=== PATIENT | male | born 1995 | race Two or more races ===

== ENCOUNTER 2024-10-12 10:04 | Emergency (ER) | payer MEDICARE, MEDICAID, SELFPAY ==
[2024-10-12 10:38] VITALS: BP 137/82; PULSE 106; RESP 20; TEMP 36.7; O2SAT 97; BMI 51.7
--- NOTE | 2024-10-12 10:40 | XR_ITS ---
Examination: Abdomen sonogram, Limited Date and time of exam: October 12, 2024 1130 hours INDICATIONS: Right upper abdominal pain with diarrhea beginning 3 weeks ago Technique: Real-time byrd scale transabdominal sonographic images of the upper abdomen obtained. Findings: Normal gallbladder Normal common bile duct 0.3 cm Pancreatic head 2.2 cm Liver 21.6 cm fatty infiltration smooth contour no focal liver lesions Normal hepatopedal portal venous oh Patent IVC IMPRESSION: Normal gallbladder Significant hepatomegaly fatty liver
[2024-10-12 11:10] LABS: Basophils % (Auto) 0 % (0-2.5); Eosinophils # (Auto) 0.1 Thou/mm3 (0.0-0.5); Eosinophils % (Auto) 1 % (0-10); Hemoglobin 14.9 g/dL (13.5-16.0); Immature Granulocytes % (Auto) 0 % (0-0); Immature Granulocytes Auto 0.02 Thou/mm3 (0.00-0.00); Lymphocytes # (Auto) 1.3 Thou/mm3 (1.0-4.8); Lymphocytes % (Auto) 17 % (10-50); Mean Corpuscular HGB Conc 34.7 g/dl (31.0-37.0); Mean Corpuscular Hemoglobin 30.3 pg (25.0-35.0); Mean Corpuscular Volume 87 fL (80-100); Monocytes # (Auto) 0.5 Thou/mm3 (0.0-0.8); Monocytes % (Auto) 7 % (0-12); Neutrophils # (Auto) 5.7 Thou/mm3 (1.8-7.7); Neutrophils % (Auto) 75 % (37-80); Nucleated Red Blood Cell % 0 /100 WBC (0); Platelet Count 200 Thou/mm3 (140-440); RDW Standard Deviation 40.9 fL (35.1-43.9); Red Blood Count 4.92 Miln/mm3 (4.50-5.90); White Blood Count 7.6 Thou/mm3 (3.8-10.6)
[2024-10-12 11:30] LABS: Alanine Aminotransferase 94 U/L (10-49); Albumin, Serum 4.9 gm/dL (3.5-5.0); Albumin/Globulin Ratio 1.7 (1.2-2.2); Alkaline Phosphatase 68 U/L (46-116); Anion Gap 9 (7-16); Aspartate Amino Transferase 52 U/L (0-34); BUN/Creatinine Ratio 13 Ratio (12-20); Bilirubin,Total 0.5 mg/dL (0.3-1.2); Blood Urea Nitrogen 12 mg/dL (9-23); Calcium 9.9 mg/dL (8.3-10.6); Calcium (Corrected) 9.9 mg/dL (8.5-10.1); Carbon Dioxide 26.2 mMol/L (20.0-31.0); Chloride 99 mMol/L (98-107); Creatinine (Component) 0.9 mg/dL (0.6-1.3); Estimated Creatinine Clearance 181.4 mL/min (>60); Globulin 2.9 gm/dL (2.3-3.5); Glucose 145 mg/dL (74-106); Lipase 35 U/L (12-53); Osmolality,Calculated 270 (275-295); Potassium 4.1 mMol/L (3.4-5.1); Sodium 134 mMol/L (136-145); Total Protein 7.8 gm/dL (5.7-8.2); eGFR > 60 See Note
[2024-10-12 12:05] LABS: Collection Type, Urine Clean Catch; Squamous Epithelial Cell,Urine 0 /hpf (0-5)
[2024-10-12 12:17] LABS: Amphetamine/Methamp Scrn,U Negative (Negative); Barbiturate Screen,Urine Negative (Negative); Benzodiazepines Screen,Urine Negative (Negative); Benzoylecgonine Screen, Ur Negative (Negative); Fentanyl Screen,Urine Negative (Negative); Opiate Screen,Urine Negative (Negative); THC Screen,Urine Negative (Negative)
[2024-10-12 12:20] LABS: Bacteria,Urine Rare; Bilirubin,Urine Negative (Negative); Blood,Urine Negative (Negative); Clarity,Urine Clear (Clear/Hazy); Color,Urine Yellow (Lt Yel-Yel); Culture Indicated,Urine Not Indicated; Glucose, Urine Negative (Negative); Hyaline Casts,Urine < 1 /hpf (0-1); Ketones,Urine Negative (Negative); Leukocyte Esterase,Urine Negative (Negative); Nitrite,Urine Negative (Negative); PH,Urine 6.5 (5.0-7.0); Protein,Urine Trace (Neg - Trace); RBC,Urine 1 /hpf (0-3); Specific Gravity,Urine 1.023 (1.001-1.035); Transitional Epi Cells,Urine < 1 /hpf (0-5); Urobilinogen,Urine Negative mg/dL (0.0-1.0); WBC,Urine 2 /hpf (0-5)
--- NOTE | 2024-10-12 12:27 | PD.EDABDPN ---
ED Abdominal Pain RME/HPI General Chief Complaint: Abdominal Pain Stated complaint: RIGHT ABD PAIN X 2 1/2 WKS; DIARRHEA Time seen by provider: 10/12/24 10:13 Arrival date/time: 10/12/24 10:04 28-year-old male presents emergency department complains of right upper abdominal pain as well as diarrhea patient for symptoms ongoing for last couple of days patient reports similar symptoms in the past Limitations: no limitations Related Data Home Medications ?Medication ?Instructions ?Recorded ?Confirmed lithium carbonate 450 mg 450 mg PO BID 12/14/22 12/14/22 tablet,extended release olanzapine 15 mg tablet 30 mg PO QPM 12/14/22 12/14/22 risperidone 4 mg tablet 8 mg PO QDAY 12/14/22 12/14/22 simvastatin 20 mg tablet 20 mg PO QDAY 12/14/22 12/14/22 Previous Rx's ?Medication ?Instructions ?Recorded ibuprofen 600 mg tablet 600 mg PO TID PRN pain #30 tabs 12/15/22 dicyclomine 20 mg tablet 20 mg PO TID PRN pain #30 tabs 12/20/22 ciprofloxacin HCl 500 mg tablet 500 mg PO BID #14 tabs 01/02/23 (Cipro) ibuprofen 800 mg tablet 800 mg PO TID PRN pain #30 tabs 01/13/23 naproxen 500 mg tablet 500 mg PO BID #30 tabs 02/11/23 ibuprofen 800 mg tablet 800 mg PO TID PRN pain #30 tabs 06/13/23 meloxicam 7.5 mg tablet 7.5 mg PO QDAY #10 tabs 06/28/23 dicyclomine 20 mg tablet 20 mg PO TID PRN pain #30 tabs 09/20/23 ibuprofen 600 mg tablet 600 mg PO TID PRN pain #30 tabs 10/25/23 metoclopramide HCl 10 mg tablet 10 mg PO Q6H PRN nausea and 02/28/24 (Reglan) vomiting #30 tabs amlodipine 5 mg tablet 5 mg PO QDAY #30 tabs 03/11/24 Allergies Allergy/AdvReac Type Severity Reaction Status Date / Time No Known Allergies Allergy Verified 10/12/24 10:05 Review of Systems Review of Systems Systems Reviewed: All systems reviewed, normal except as documented Constitutional Constitutional: Reports system reviewed and no additional complaints, except as documented, Denies fatigue, Denies fever(s) and Denies headache(s) Eyes Eyes: Reports system reviewed and no additional complaints, except as documented and Denies blurry vision ENT Ears, Nose, Mouth, and Throat: Reports system reviewed and no additional complaints, except as documented, Denies headache(s), Denies nasal congestion and Denies nasal discharge Cardiovascular Cardiovascular: Reports system reviewed and no additional complaints, except as documented, Denies chest pain and Denies dyspnea Respiratory Respiratory: Reports system reviewed and no additional complaints, except as documented, Denies chest congestion, Denies cough and Denies dyspnea Gastrointestinal Gastrointestinal: Reports system reviewed and no additional complaints, except as documented, Reports abdominal pain, Denies nausea and Denies vomiting Musculoskeletal Musculoskeletal: Reports system reviewed and no additional complaints, except as documented, Denies abnormal gait, Denies numbness, Denies stiffness and Denies tingling Integumentary/Breasts Skin/Breast: Reports system reviewed and no additional complaints, except as documented and Denies rash Neurologic Neurologic: Reports system reviewed and no additional complaints, except as documented, Reports as per HPI, Denies abnormal gait, Denies headache(s), Denies numbness and Denies tingling Psychiatric Psychiatric: Reports system reviewed and no additional complaints, except as documented and Denies anxiety Endocrine Endocrine: Denies fatigue Past Medical History Past Medical History NEUROLOGIC: Negative Neurological Disorders ED Exam General Limitations: Present no limitations General appearance: Present alert and in no apparent distress Head Head exam: Present atraumatic Eye Eye exam: Present normal appearance, PERRL and EOMI ENT ENT exam: Present normal exam, normal oropharynx and mucous membranes moist Neck Neck exam: Present normal inspection, full ROM and trachea midline Chest Chest inspection: Present normal inspection and symmetric chest wall rise Respiratory Respiratory exam: Present normal lung sounds bilaterally Cardiovascular Cardiovascular exam: Present regular rate, normal rhythm and normal heart sounds Abdominal Exam Abdominal exam: Present soft and normal bowel sounds; Absent distention, tenderness, guarding, rebound, rigidity, Johnson's sign or tenderness at McBurney's Point Abdominal tenderness: Absent RUQ or RLQ Extremities Exam Extremities exam: Present normal inspection and full ROM Back Exam Back exam: Present normal inspection and full ROM Neurological Exam Neurological exam: Present alert, oriented X3 and CN II-XII intact Psychiatric Psychiatric exam: Present normal affect and normal mood Skin Skin exam: Present warm, dry, intact and normal color Course Quality Measures none Orders Category Date Time Status US gall bladder Stat Exams 10/12/24 10:40 Completed CBC Stat Lab 10/12/24 10:47 Completed Comprehensive Metabolic Panel Stat Lab 10/12/24 10:47 Completed Drug Screen,Urine Stat Lab 10/12/24 11:56 Completed Lipase Stat Lab 10/12/24 10:47 Completed UA, C/S IF [Urinalysis, C/S if Indicated] Stat Lab 10/12/24 11:49 Completed Vital Signs Vital signs: Vital Signs Temperature 98.1 F 10/12/24 10:38 Pulse Rate 106 H 10/12/24 10:38 Respiratory Rate 20 10/12/24 10:38 Blood Pressure 137/82 H 10/12/24 10:38 Pulse Oximetry (%) 97 10/12/24 10:38 Oxygen Delivery Method Room Air 10/12/24 10:38 O2 saturation 97% room air within normal limits Abdominal Pain MDM MDM Narrative MDM Narrative:: 28-year-old male presents emergency department complains of right upper abdominal pain as well as diarrhea patient for symptoms ongoing for last couple of days patient reports similar symptoms in the past On exam patient well-appearing patient does not appear ill or toxic in no acute distress Lab works well as abdominal ultrasound obtained No acute emergent findings noted Patient discharged home in no distress to follow-up with primary care doctor in the next 24 to 48 hours and for any worsening symptoms to return to the ER immediately Patient data External records reviewed:: [facility] previous records Clinical information provided by:: patient Social determinants that could affect healthcare access:: mental health Patient has the following chronic illnesses:: See history How is presenting disease/condition affected by chronic disease/condition?: uneffected by Evaluation data The following diagnostics were reviewed and interpreted by me:: lab results and radiology exam(s) Lab and/or radiology exams considered but not ordered:: Labs and radiology obtained Interpretation Summary: Reviewed by me Medications / Prescriptions Medications or Prescriptions considered but not ordered:: Consider not ordered Medication administrations:: Given Consultations Consultation(s) initiated? (list below): No Diagnosis Differential diagnosis abdominal pain: abdominal pain, acute appendicitis, gastroenteritis and pancreatitis Most likely diagnosis given after review of the tests above:: Abdominal pain Admission Indicated Admission indicated?: not indicated Admission Request Was there a request for admission?: No Disposition Plan Disposition Plan: Discharge Discharge Attestation Discharge Attestation: The patient and all family members were given an opportunity to ask questions and understood the discharge instructions. Discharge instructions specifically effects, indications for sooner follow up or return to the emergency department, and the expected course of current diagnosis. Patient condition: Stable Discharge Plan Plan Patient Disposition: HOME (Self Care) Disposition Comment: Stable Prescriptions/Referrals Prescriptions/Med Rec: No Action risperidone 4 mg Tablet 8 mg PO QDAY lithium carbonate 450 mg Tablet Extended Release 450 mg PO BID simvastatin 20 mg Tablet 20 mg PO QDAY olanzapine 15 mg Tablet 30 mg PO QPM ibuprofen 600 mg tablet 600 mg PO TID PRN (Reason: pain) Qty: 30 0RF dicyclomine 20 mg tablet 20 mg PO TID PRN (Reason: pain) Qty: 30 0RF meloxicam 7.5 mg tablet 7.5 mg PO QDAY Qty: 10 0RF ibuprofen 600 mg tablet 600 mg PO TID PRN (Reason: pain) Qty: 30 0RF metoclopramide HCl [Reglan] 10 mg tablet 10 mg PO Q6H PRN (Reason: nausea and vomiting) Qty: 30 0RF ciprofloxacin HCl [Cipro] 500 mg tablet 500 mg PO BID Qty: 14 0RF ibuprofen 800 mg tablet 800 mg PO TID PRN (Reason: pain) Qty: 30 0RF naproxen 500 mg tablet 500 mg PO BID Qty: 30 0RF ibuprofen 800 mg tablet 800 mg PO TID PRN (Reason: pain) Qty: 30 0RF dicyclomine 20 mg tablet 20 mg PO TID PRN (Reason: pain) Qty: 30 0RF amlodipine 5 mg tablet 5 mg PO QDAY Qty: 30 0RF Referrals: Jayna Bansal FNP [Primary Care Provider] - In 1 week Problem List Clinical Impression: Abdominal pain Patient/Caregiver Discharge Instructions Education Materials: Abdominal Pain Additional Instructions: Please follow up with your primary care doctor in the next 24-48hrs for any worsening symptoms return here immediately Print Language: Zambian Stand Alone Forms: Sonia Award Info., Patient Portal Info Letter EDD/AIXA Supervising Physician EDD/AIXA Supervising Physician: Dr sharif
== END 2024-10-12 13:20 | disposition home or self-care (01) ==
PROVIDERS: Nurse Practitioner Primary Care; Emergency Provider Emergency Medicine; PCP Nurse Practitioner Family
DX: R10.11 Right upper quadrant pain (principal)
CPT/HCPCS: 36415; 76705; 80053; 80307; 81001; 83690; 85025; 99284

== ENCOUNTER 2024-10-23 10:19 | Emergency (ER) | payer MEDICARE, MEDICAID, SELFPAY ==
[2024-10-23 10:20] VITALS: BMI 48.7
[2024-10-23 10:34] VITALS: BP 144/107; PULSE 124; RESP 20; TEMP 36.9; O2SAT 98
--- NOTE | 2024-10-23 10:38 | EDNOTE_ITS ---
ED Psych RME/HPI General Chief Complaint: Psychiatric Symptoms Stated Complaint: BAD PEOPLE TOOK SPINE FLUID FROM BRAIN Time Seen by Provider: 10/23/24 10:37 Arrival date/time: 10/23/24 10:19 28-year-old male with diagnosis of schizophrenia history of methamphetamine abuse presents emergency department today complaining of hearing voices. Limitations: no limitations Related Data Home Medications ?Medication ?Instructions ?Recorded ?Confirmed lithium carbonate 450 mg 450 mg PO BID 12/14/22 12/14/22 tablet,extended release olanzapine 15 mg tablet 30 mg PO QPM 12/14/22 12/14/22 risperidone 4 mg tablet 8 mg PO QDAY 12/14/22 12/14/22 simvastatin 20 mg tablet 20 mg PO QDAY 12/14/22 12/14/22 Previous Rx's ?Medication ?Instructions ?Recorded ibuprofen 600 mg tablet 600 mg PO TID PRN pain #30 tabs 12/15/22 dicyclomine 20 mg tablet 20 mg PO TID PRN pain #30 tabs 12/20/22 ciprofloxacin HCl 500 mg tablet 500 mg PO BID #14 tabs 01/02/23 (Cipro) ibuprofen 800 mg tablet 800 mg PO TID PRN pain #30 tabs 01/13/23 naproxen 500 mg tablet 500 mg PO BID #30 tabs 02/11/23 ibuprofen 800 mg tablet 800 mg PO TID PRN pain #30 tabs 06/13/23 meloxicam 7.5 mg tablet 7.5 mg PO QDAY #10 tabs 06/28/23 dicyclomine 20 mg tablet 20 mg PO TID PRN pain #30 tabs 09/20/23 ibuprofen 600 mg tablet 600 mg PO TID PRN pain #30 tabs 10/25/23 metoclopramide HCl 10 mg tablet 10 mg PO Q6H PRN nausea and 02/28/24 (Reglan) vomiting #30 tabs amlodipine 5 mg tablet 5 mg PO QDAY #30 tabs 03/11/24 Allergies Allergy/AdvReac Type Severity Reaction Status Date / Time No Known Allergies Allergy Verified 10/23/24 10:24 Review of Systems Review of Systems Systems Reviewed: All systems reviewed, normal except as documented Constitutional Constitutional: Reports system reviewed and no additional complaints, except as documented, Denies fever(s) and Denies headache(s) Eyes Eyes: Reports system reviewed and no additional complaints, except as documented and Denies blurry vision ENT Ears, Nose, Mouth, and Throat: Reports system reviewed and no additional complaints, except as documented, Denies headache(s), Denies nasal congestion and Denies nasal discharge Cardiovascular Cardiovascular: Reports system reviewed and no additional complaints, except as documented, Denies chest pain and Denies dyspnea Respiratory Respiratory: Reports system reviewed and no additional complaints, except as documented, Denies chest congestion, Denies cough and Denies dyspnea Gastrointestinal Gastrointestinal: Reports system reviewed and no additional complaints, except as documented and Denies abdominal pain Integumentary/Breasts Skin/Breast: Reports system reviewed and no additional complaints, except as documented and Denies rash Neurologic Neurologic: Reports system reviewed and no additional complaints, except as documented, Reports as per HPI and Denies headache(s) Psychiatric Psychiatric: Reports system reviewed and no additional complaints, except as documented, Reports anxiety, Reports auditory hallucinations, Denies homicidal ideation, Reports panic attacks, Denies suicidal ideation, Reports tactile hallucinations and Denies visual hallucinations Past Medical History Past Medical History NEUROLOGIC: Negative Neurological Disorders CARDIAC: Positive Hypertension; Negative Cardiac Disorders or Congestive Heart Failure RESPIRATORY: Negative Chronic Obstructive Pulmonary Disease (COPD) or Asthma GASTROINTESTINAL: Negative Gastrointestinal Disorders GENITOURINARY: Negative Genitourinary Disorders or Renal Disease MUSCULOSKELETAL: Positive Musculoskeletal Disorders ENDOCRINE: Negative Endocrine Disorders, Diabetes Mellitus Type 1 or Diabetes Mellitus Type 2 (Pre-diabetic) HEMATOLOGIC: Negative Blood Disorders or Sickle Cell Disease PSYCHO/SOCIAL: Positive Schizophrenia and Recreational Drug Use Social History SMOKING STATUS: Never smoker SECOND HAND EXPOSURE: No SUBSTANCE USE: methamphetamine OCCUPATION: Not working ED Exam General Limitations: Present no limitations General appearance: Present alert and in no apparent distress Head Head exam: Present atraumatic, normocephalic and normal inspection Eye Eye exam: Present normal appearance, PERRL and EOMI; Absent conjunctival injection ENT ENT exam: Present normal exam, normal oropharynx and mucous membranes moist Neck Neck exam: Present normal inspection, full ROM and trachea midline Chest Chest inspection: Present normal inspection and symmetric chest wall rise Respiratory Respiratory exam: Present normal lung sounds bilaterally; Absent respiratory distress Cardiovascular Cardiovascular exam: Present regular rate, normal rhythm and normal heart sounds Abdominal Exam Abdominal exam: Present soft and normal bowel sounds; Absent distention, tenderness, guarding, rebound or rigidity Extremities Exam Extremities exam: Present normal inspection and full ROM Back Exam Back exam: Present normal inspection and full ROM Neurological Exam Neurological exam: Present alert, oriented X3, CN II-XII intact, normal gait and reflexes normal; Absent motor sensory deficit Psychiatric Psychiatric exam: Present anxious; Absent depressed, agitated, flat affect, homicidal ideation or suicidal ideation Skin Skin exam: Present warm, dry, intact and normal color; Absent rash Course Quality Measures none Vital Signs Vital signs: Vital Signs Temperature 98.4 F 10/23/24 10:34 Pulse Rate 124 H 10/23/24 10:34 Respiratory Rate 20 10/23/24 10:34 Blood Pressure 144/107 H 10/23/24 10:34 Pulse Oximetry (%) 98 10/23/24 10:34 Oxygen Delivery Method Room Air 10/23/24 10:34 O2 saturation 98% room air WNL Psych MDM Narrative MDM Narrative:: 28-year-old male with diagnosis of schizophrenia history of methamphetamine abuse presents emergency department today complaining of hearing voices. On exam patient does not appear ill or toxic in no acute distress patient hemodynamically stable Patient is very well-known to me I am known for many years I had a conversation with the patient and patient assures me he is not suicidal or homicidal he does not want to speak with psych or crisis and does not want a lab work We talked for a while and he states he feels well to go home Patient discharged home in no distress to follow-up with primary care doctor in the next 24 to 48 hours and for any worsening symptoms to return to the ER immediately Patient data External records reviewed:: [facility] previous records Clinical information provided by:: patient Social determinants that could affect healthcare access:: mental health Patient has the following chronic illnesses:: Mental health How is presenting disease/condition affected by chronic disease/condition?: caused by Evaluation data The following diagnostics were reviewed and interpreted by me:: other (specify) (N/A) Lab and/or radiology exams considered but not ordered:: Consider not ordered Interpretation Summary: N/A Medications / Prescriptions Medications or Prescriptions considered but not ordered:: No meds Medication administrations:: No meds Consultations Consultation(s) initiated? (list below): No Diagnosis Psych Differential Diagnosis: acute psychosis, chronic schizophrenia and drug- induced psychotic disorder Most likely diagnosis given after review of the tests above:: Schizophrenia Admission Indicated Admission indicated?: not indicated Admission Request Was there a request for admission?: No Disposition Plan Disposition Plan: Discharge Discharge Attestation Discharge Attestation: The patient and all family members were given an opportunity to ask questions and understood the discharge instructions. Discharge instructions specifically effects, indications for sooner follow up or return to the emergency department, and the expected course of current diagnosis. Patient condition: Stable Discharge Plan Plan Patient Disposition: HOME (Self Care) Disposition Comment: stable Prescriptions/Referrals Prescriptions/Med Rec: No Action risperidone 4 mg Tablet 8 mg PO QDAY lithium carbonate 450 mg Tablet Extended Release 450 mg PO BID simvastatin 20 mg Tablet 20 mg PO QDAY olanzapine 15 mg Tablet 30 mg PO QPM ibuprofen 600 mg tablet 600 mg PO TID PRN (Reason: pain) Qty: 30 0RF dicyclomine 20 mg tablet 20 mg PO TID PRN (Reason: pain) Qty: 30 0RF meloxicam 7.5 mg tablet 7.5 mg PO QDAY Qty: 10 0RF ibuprofen 600 mg tablet 600 mg PO TID PRN (Reason: pain) Qty: 30 0RF metoclopramide HCl [Reglan] 10 mg tablet 10 mg PO Q6H PRN (Reason: nausea and vomiting) Qty: 30 0RF ciprofloxacin HCl [Cipro] 500 mg tablet 500 mg PO BID Qty: 14 0RF ibuprofen 800 mg tablet 800 mg PO TID PRN (Reason: pain) Qty: 30 0RF naproxen 500 mg tablet 500 mg PO BID Qty: 30 0RF ibuprofen 800 mg tablet 800 mg PO TID PRN (Reason: pain) Qty: 30 0RF dicyclomine 20 mg tablet 20 mg PO TID PRN (Reason: pain) Qty: 30 0RF amlodipine 5 mg tablet 5 mg PO QDAY Qty: 30 0RF Problem List Clinical Impression: Chronic schizophrenia Patient/Caregiver Discharge Instructions Education Materials: ED Psychosis Additional Instructions: Please follow up with your primary care doctor in the next 24-48hrs for any worsening symptoms return here immediately Print Language: Macanese Stand Alone Forms: Sonia Award Info., Patient Portal Info Letter PA/CLINICAL TRIAL ASSISTANT Supervising Physician PA/CLINICAL TRIAL ASSISTANT Supervising Physician: dr damon
== END 2024-10-23 11:04 | disposition home or self-care (01) ==
LOC: SERX 10:46
PROVIDERS: Emergency Provider Emergency Medicine
DX: F20.9 Schizophrenia, unspecified (principal)
CPT/HCPCS: 99281

== ENCOUNTER → 2024-12-10 | Outpatient (CLI) | payer MEDICARE, MEDICAID, SELFPAY ==
--- NOTE | 2024-12-10 15:30 | XR_ITS ---
Examination: Ultrasound soft tissue scalp TECHNIQUE: High resolution grayscale sonographic images soft tissue posterior scalp INDICATIONS: Lump in the posterior back of the head several months with swelling FINDINGS: No cystic or solid mass IMPRESSION: No cystic or solid mass
== END | disposition home or self-care (01) ==
LOC: CDIM 15:21
PROVIDERS: Referring Provider Nurse Practitioner Family; Visit Provider Nurse Practitioner Family
DX: R22.0 Localized swelling, mass and lump, head (principal)
CPT/HCPCS: 76536

== ENCOUNTER 2024-12-27 09:30 | Emergency (ER) | payer MEDICARE, MEDICAID, SELFPAY ==
[2024-12-27 09:31] VITALS: BMI 49.5
[2024-12-27 10:37] VITALS: BP 152/97; PULSE 116; RESP 18; TEMP 36.7; O2SAT 96
--- NOTE | 2024-12-27 11:16 | PD.EDRME ---
Rapid Medical Screening Exam RME Arrival date/time: 12/27/24 09:30 29-year-old male history of ADAME here with complaints of right upper quadrant abdominal pain. I have greeted and performed a focused initial assessment of this patient. Initial appropriate labs ordered at this time. A comprehensive ED assessment and evaluation of the patient and analysis of all test and completion of medical decision making process will be conducted by additional ED provider. Chief Complaint: Abdominal Pain Time Seen by Provider: 12/27/24 09:57 Vital signs: Vital Signs Temperature 98.1 F 12/27/24 10:37 Pulse Rate 116 H 12/27/24 10:37 Respiratory Rate 18 12/27/24 10:37 Blood Pressure 152/97 H 12/27/24 10:37 Pulse Oximetry (%) 96 12/27/24 10:37 Oxygen Delivery Method Room Air 12/27/24 10:37
[2024-12-27 11:35] LABS: Collection Type, Urine Clean Catch; Squamous Epithelial Cell,Urine 0 /hpf (0-5)
[2024-12-27 11:42] LABS: Basophils % (Auto) 0 % (0-2.5); Eosinophils % (Auto) 0 % (0-10); Hematocrit 40.8 % (41.0-53.0); Hemoglobin 14.2 g/dL (13.5-16.0); Immature Granulocytes % (Auto) 0 % (0-0); Immature Granulocytes Auto 0.03 Thou/mm3 (0.00-0.00); Lymphocytes # (Auto) 1.5 Thou/mm3 (1.0-4.8); Lymphocytes % (Auto) 15 % (10-50); Mean Corpuscular HGB Conc 34.8 g/dl (31.0-37.0); Mean Corpuscular Hemoglobin 30.1 pg (25.0-35.0); Mean Corpuscular Volume 86 fL (80-100); Monocytes # (Auto) 0.6 Thou/mm3 (0.0-0.8); Monocytes % (Auto) 7 % (0-12); Neutrophils # (Auto) 7.3 Thou/mm3 (1.8-7.7); Neutrophils % (Auto) 77 % (37-80); Nucleated Red Blood Cell % 0 /100 WBC (0); Platelet Count 211 Thou/mm3 (140-440); RDW Standard Deviation 40.2 fL (35.1-43.9); Red Blood Count 4.72 Miln/mm3 (4.50-5.90); White Blood Count 9.5 Thou/mm3 (3.8-10.6)
[2024-12-27 11:56] LABS: Alanine Aminotransferase 72 U/L (10-49); Albumin, Serum 4.7 gm/dL (3.5-5.0); Albumin/Globulin Ratio 1.6 (1.2-2.2); Alkaline Phosphatase 73 U/L (46-116); Anion Gap 11 (7-16); Aspartate Amino Transferase 47 U/L (0-34); BUN/Creatinine Ratio 15 Ratio (12-20); Bilirubin,Total 0.5 mg/dL (0.3-1.2); Blood Urea Nitrogen 12 mg/dL (9-23); Calcium 9.9 mg/dL (8.3-10.6); Calcium (Corrected) 9.9 mg/dL (8.5-10.1); Carbon Dioxide 25.3 mMol/L (20.0-31.0); Chloride 100 mMol/L (98-107); Creatinine (Component) 0.8 mg/dL (0.6-1.3); Estimated Creatinine Clearance 203.2 mL/min (>60); Glucose 134 mg/dL (74-106); Lipase 31 U/L (12-53); Osmolality,Calculated 273 (275-295); Potassium 4.3 mMol/L (3.4-5.1); Sodium 136 mMol/L (136-145); Total Protein 7.7 gm/dL (5.7-8.2); eGFR > 60 See Note
[2024-12-27 11:59] LABS: Bilirubin,Urine Negative (Negative); Blood,Urine Negative (Negative); Clarity,Urine Turbid (Clear/Hazy); Color,Urine Yellow (Lt Yel-Yel); Glucose, Urine Negative (Negative); Granular Casts,Urine 2 /hpf (0-1); Ketones,Urine Trace (Negative); Leukocyte Esterase,Urine Negative (Negative); Nitrite,Urine Negative (Negative); Protein,Urine 1+ (Neg - Trace); RBC,Urine 1 /hpf (0-3); Specific Gravity,Urine 1.032 (1.001-1.035); Urobilinogen,Urine Negative mg/dL (0.0-1.0); WBC,Urine 1 /hpf (0-5)
[2024-12-27 12:10] LABS: Sperm,Urine Present
[2024-12-27 12:57] VITALS: BP 135/97; PULSE 92; RESP 20; TEMP 36.7; O2SAT 97
--- NOTE | 2024-12-27 14:01 | XR_ITS ---
Examination: Abdomen sonogram, Limited Date and time of exam: December 13 1224 hours INDICATIONS: Right upper abdominal pain beginning 5 months ago worse today Technique: Real-time byrd scale transabdominal sonographic images of the upper abdomen obtained. Findings: Negative for gallstones Gallbladder wall 0.3 cm no edema Common bile duct 0.4 cm Pancreatic head 2.3 cm Liver 26.5 cm fatty infiltration no focal liver lesions Normal hepatopedal portal venous flow Patent IVC IMPRESSION: Normal gallbladder Significant hepatomegaly fatty liver
--- NOTE | 2024-12-27 14:02 | PD.EDABDPN ---
ED Abdominal Pain RME/HPI General Chief Complaint: Abdominal Pain Stated complaint: RUQ PAIN Time seen by provider: 12/27/24 09:57 Arrival date/time: 12/27/24 09:30 RME / HPI RME / HPI narrative: 29-year-old male patient with significant history of ADAME came in for evaluation regarding right upper quadrant pain. Patient having having right upper quadrant pain for more than a month, but today patient pain is get worse. Describes sharp pain severity moderate. Denies any fever vomiting diarrhea or constipation denies any other complaints. Related Data Home Medications ?Medication ?Instructions ?Recorded ?Confirmed lithium carbonate 450 mg 450 mg PO BID 12/14/22 12/14/22 tablet,extended release olanzapine 15 mg tablet 30 mg PO QPM 12/14/22 12/14/22 risperidone 4 mg tablet 8 mg PO QDAY 12/14/22 12/14/22 simvastatin 20 mg tablet 20 mg PO QDAY 12/14/22 12/14/22 Previous Rx's ?Medication ?Instructions ?Recorded ibuprofen 600 mg tablet 600 mg PO TID PRN pain #30 tabs 12/15/22 dicyclomine 20 mg tablet 20 mg PO TID PRN pain #30 tabs 12/20/22 ciprofloxacin HCl 500 mg tablet 500 mg PO BID #14 tabs 01/02/23 (Cipro) ibuprofen 800 mg tablet 800 mg PO TID PRN pain #30 tabs 01/13/23 naproxen 500 mg tablet 500 mg PO BID #30 tabs 02/11/23 ibuprofen 800 mg tablet 800 mg PO TID PRN pain #30 tabs 06/13/23 meloxicam 7.5 mg tablet 7.5 mg PO QDAY #10 tabs 06/28/23 dicyclomine 20 mg tablet 20 mg PO TID PRN pain #30 tabs 09/20/23 ibuprofen 600 mg tablet 600 mg PO TID PRN pain #30 tabs 10/25/23 metoclopramide HCl 10 mg tablet 10 mg PO Q6H PRN nausea and 02/28/24 (Reglan) vomiting #30 tabs amlodipine 5 mg tablet 5 mg PO QDAY #30 tabs 03/11/24 Allergies Allergy/AdvReac Type Severity Reaction Status Date / Time No Known Allergies Allergy Verified 12/27/24 10:58 Review of Systems Review of Systems Narrative Review of Systems: Review of system reviewed and within normal limits except mentioned in HPI ED Exam Narrative Physical exam: VITAL SIGNS: Reviewed. GENERAL APPEARANCE: Alert and interactive, follows commands, no acute distress, HEAD AND FACE: Non-traumatic. ENT: PERRL, pink conjunctivitis, eyelid no trauma, Mucous membrane moist. NECK: Supple, nontender, no nuchal rigidity. CHEST: No tenderness, no crepitus, no paradoxical movement, no retractions. LUNGS: Clear, well ventilated, symmetric, no rales, no wheezing, no ronchi, no stridor, good breath sounds bilaterally. HEART: Regular rate, regular rhythm, no murmur, no gallops. ABDOMEN: Soft, positive bowel sounds, nondistended, no guarding, right upper quadrant tenderness, no rebound, no masses, RECTAL: Deferred. GENITAL: Deferred. NEUROLOGICAL: Gross motor function intact sensory function intact, Appropriate for age. MUSCULOSKELETAL: low back nontender, full range of motion. EXTREMITIES: Nontender, full range of motion. SKIN: Color pink, dry, no rash, no lacerations, no abrasions, no contusions. LYMPHATICS: Deferred. Course Quality Measures none Orders Category Date Time Status US gall bladder Stat Exams 12/27/24 14:01 Completed CBC Stat Lab 12/27/24 11:23 Completed Comprehensive Metabolic Panel Stat Lab 12/27/24 11:23 Completed Lipase Stat Lab 12/27/24 11:23 Completed Urinalysis Stat Lab 12/27/24 11:31 Completed Ketorolac Inj [Toradol Inj] Med 12/27/24 14:01 Discontinued 30 mg IM X1 ONE Vital Signs Vital signs: Vital Signs Temperature 98.1 F 12/27/24 10:37 Pulse Rate 116 H 12/27/24 10:37 Respiratory Rate 18 12/27/24 10:37 Blood Pressure 152/97 H 12/27/24 10:37 Pulse Oximetry (%) 96 12/27/24 10:37 Oxygen Delivery Method Room Air 12/27/24 10:37 Abdominal Pain MDM MDM Narrative MDM Narrative:: 29-year-old male patient with significant history of ADAME came in for evaluation regarding right upper quadrant pain. Patient having having right upper quadrant pain for more than a month, but today patient pain is get worse. Describes sharp pain severity moderate. Denies any fever vomiting diarrhea or constipation denies any other complaints. Patient's workup today all came back unremarkable including ultrasound of the right upper quadrant showed fatty liver otherwise no gallstone noted. Results discussed with the patient. Patient appears nontoxic and hemodynamically stable. Patient discharged home and instructed to follow-up with primary care provider in 24 to 48 hours. Instructed to return to the emergency department immediately if worsening of symptoms Patient data External records reviewed:: None Clinical information provided by:: none Social determinants that could affect healthcare access:: none Patient has the following chronic illnesses:: History of fatty liver How is presenting disease/condition affected by chronic disease/condition?: exacerbated by Evaluation data The following diagnostics were reviewed and interpreted by me:: lab results and radiology exam(s) Lab and/or radiology exams considered but not ordered:: None Interpretation Summary: See results in MDM Medications / Prescriptions Medications or Prescriptions considered but not ordered:: None Medication administrations:: Medication Administration History Discontinued Medications Ketorolac Tromethamine (Ketorolac Inj 60 Mg/2 Ml Vial) 30 mg IM X1 ONE Stop: 12/27/24 14:02 Last Admin: 12/27/24 14:47 Dose: 30 mg Documented By: FARRUKH Toradol Consultations Consultation(s) initiated? (list below): No Diagnosis Differential diagnosis abdominal pain: abdominal pain and other (Right upper quadrant pain, fatty liver) Most likely diagnosis given after review of the tests above:: Right upper quadrant pain, fatty liver Admission Indicated Admission indicated?: not indicated Admission Request Was there a request for admission?: No Disposition Plan Disposition Plan: Discharge Discharge Attestation Discharge Attestation: The patient was given an opportunity to ask questions and understood the discharge instructions. Discharge instructions specifically effects, indications for sooner follow up or return to the emergency department, and the expected course of current diagnosis. Patient condition: Stable Discharge Plan Plan Patient Disposition: HOME (Self Care) Disposition Comment: Stable Prescriptions/Referrals Prescriptions/Med Rec: No Action risperidone 4 mg Tablet 8 mg PO QDAY lithium carbonate 450 mg Tablet Extended Release 450 mg PO BID simvastatin 20 mg Tablet 20 mg PO QDAY olanzapine 15 mg Tablet 30 mg PO QPM ibuprofen 600 mg tablet 600 mg PO TID PRN (Reason: pain) Qty: 30 0RF dicyclomine 20 mg tablet 20 mg PO TID PRN (Reason: pain) Qty: 30 0RF meloxicam 7.5 mg tablet 7.5 mg PO QDAY Qty: 10 0RF ibuprofen 600 mg tablet 600 mg PO TID PRN (Reason: pain) Qty: 30 0RF metoclopramide HCl [Reglan] 10 mg tablet 10 mg PO Q6H PRN (Reason: nausea and vomiting) Qty: 30 0RF ciprofloxacin HCl [Cipro] 500 mg tablet 500 mg PO BID Qty: 14 0RF ibuprofen 800 mg tablet 800 mg PO TID PRN (Reason: pain) Qty: 30 0RF naproxen 500 mg tablet 500 mg PO BID Qty: 30 0RF ibuprofen 800 mg tablet 800 mg PO TID PRN (Reason: pain) Qty: 30 0RF dicyclomine 20 mg tablet 20 mg PO TID PRN (Reason: pain) Qty: 30 0RF amlodipine 5 mg tablet 5 mg PO QDAY Qty: 30 0RF Referrals: Jayna Bansal FNP [Primary Care Provider] - In 1 week Problem List Clinical Impression: Abdominal pain, acute, right upper quadrant, Fatty liver Patient/Caregiver Discharge Instructions Discharge Activity: activity as tolerated Education Materials: Abdominal Pain Additional Instructions: Thank you for the opportunity for serving you today. You are stable for discharged . You are advised to: Follow-up with your PCP in 1 to 2 days Return to ED for worsening of symptoms Increase oral fluids Try to lose weight and your fatty liver will improve also. Print Language: Kyrgyz Stand Alone Forms: [employer]onia Award Info., Patient Portal Info Letter
[2024-12-27] MEDS: KETOROLAC INJ 60 MG/2 ML VIAL 30 MG IM (14:47)
[2024-12-27 16:00] VITALS: BP 138/96; PULSE 99; RESP 18; TEMP 37.2; O2SAT 96
== END 2024-12-27 16:38 | disposition home or self-care (01) ==
PROVIDERS: Nurse Practitioner Primary Care; Emergency Provider Emergency Medicine; PCP Nurse Practitioner Family
DX: K76.0 Fatty (change of) liver, not elsewhere classified (principal)
CPT/HCPCS: 36415; 76705; 80053; 81001; 83690; 85025; 96372; 99284; J1885

== ENCOUNTER 2025-03-19 06:01 | Emergency (ER) | payer MEDICARE, MEDICAID, SELFPAY ==
[2025-03-19 06:02] VITALS: BMI 48.7
[2025-03-19 06:30] VITALS: BP 150/98; PULSE 102; RESP 17; TEMP 37; O2SAT 97
--- NOTE | 2025-03-19 06:45 | XR_ITS ---
Examination: Abdomen sonogram, Limited Date and time of exam: March 19, 2025 0715 hours INDICATIONS: Right upper abdominal pain beginning 6 months ago, severe today Technique: Real-time byrd scale transabdominal sonographic images of the upper abdomen obtained. Findings: Normal gallbladder Normal common bile ducts are 0.4 cm Pancreatic head 3.4 cm Hepatomegaly 22 cm fatty infiltration irregular contour Normal hepatopedal portal venous flow Patent IVC IMPRESSION: Normal gallbladder Primary hepatocellular disease, hepatomegaly
--- NOTE | 2025-03-19 06:47 | PD.EDRME ---
Rapid Medical Screening Exam RME Arrival date/time: 03/19/25 06:01 This is a 29-year-old male that comes in with complaints of abdominal pain started last night. Patient states he has had this abdominal pain for months now patient states that he has been told that he has fatty liver disease. Patient reports that he is also prediabetic. Patient denies any fever, nausea, vomiting. Patient reports some diarrhea. Patient reports that he ate tacos last night. I have greeted and performed a focused initial assessment of this patient. Initial appropriate labs ordered at this time. A comprehensive ED assessment and evaluation of the patient and analysis of all test and completion of medical decision making process will be conducted by additional ED provider. Chief Complaint: Abdominal Pain Time Seen by Provider: 03/19/25 06:24 Vital signs: Vital Signs Temperature 98.6 F 03/19/25 06:30 Pulse Rate 102 H 03/19/25 06:30 Respiratory Rate 17 03/19/25 06:30 Blood Pressure 150/98 H 03/19/25 06:30 Pulse Oximetry (%) 97 03/19/25 06:30 Oxygen Delivery Method Room Air 03/19/25 06:30
[2025-03-19 07:28] LABS: Collection Type, Urine Voided
[2025-03-19 07:36] LABS: Bilirubin,Urine Negative (Negative); Blood,Urine Negative (Negative); Clarity,Urine Clear (Clear/Hazy); Color,Urine Lt-Yellow (Lt Yel-Yel); Culture Indicated,Urine Not Indicated; Glucose, Urine Negative (Negative); Ketones,Urine Negative (Negative); Leukocyte Esterase,Urine Negative (Negative); Nitrite,Urine Negative (Negative); Protein,Urine Negative (Neg - Trace); RBC,Urine 1 /hpf (0-3); Specific Gravity,Urine 1.016 (1.001-1.035); Squamous Epithelial Cell,Urine 1 /hpf (0-5); Urobilinogen,Urine Negative mg/dL (0.0-1.0); WBC,Urine 2 /hpf (0-5)
[2025-03-19 07:44] LABS: Amphetamine/Methamp Scrn,U Negative (Negative); Barbiturate Screen,Urine Negative (Negative); Benzodiazepines Screen,Urine Negative (Negative); Benzoylecgonine Screen, Ur Negative (Negative); Fentanyl Screen,Urine Negative (Negative); Opiate Screen,Urine Negative (Negative); THC Screen,Urine Negative (Negative)
[2025-03-19 07:51] VITALS: BP 152/112; PULSE 96; RESP 15; TEMP 36.7; O2SAT 92
[2025-03-19 08:09] LABS: Basophils % (Auto) 0 % (0-2.5); Eosinophils # (Auto) 0.1 Thou/mm3 (0.0-0.5); Eosinophils % (Auto) 1 % (0-10); Hematocrit 40.1 % (41.0-53.0); Immature Granulocytes % (Auto) 0 % (0-0); Immature Granulocytes Auto 0.03 Thou/mm3 (0.00-0.00); Lymphocytes # (Auto) 1.4 Thou/mm3 (1.0-4.8); Lymphocytes % (Auto) 16 % (10-50); Mean Corpuscular HGB Conc 34.9 g/dl (31.0-37.0); Mean Corpuscular Hemoglobin 29.7 pg (25.0-35.0); Mean Corpuscular Volume 85 fL (80-100); Monocytes # (Auto) 0.6 Thou/mm3 (0.0-0.8); Monocytes % (Auto) 7 % (0-12); Neutrophils # (Auto) 6.4 Thou/mm3 (1.8-7.7); Neutrophils % (Auto) 76 % (37-80); Nucleated Red Blood Cell % 0 /100 WBC (0); Platelet Count 208 Thou/mm3 (140-440); RDW Standard Deviation 38.2 fL (35.1-43.9); Red Blood Count 4.71 Miln/mm3 (4.50-5.90); White Blood Count 8.5 Thou/mm3 (3.8-10.6)
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
--- NOTE | 2025-03-19 08:20 | PC.NURSE ---
pt came into ed for abdominal pain that has been occuring for months. pt reports pain worsening yesterday. pt states that they have fatty liver. pt also reports diarrhea that started yesterday
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
[2025-03-19 08:48] LABS: Alanine Aminotransferase 43 U/L (10-49); Albumin, Serum 4.7 gm/dL (3.5-5.0); Albumin/Globulin Ratio 1.5 (1.2-2.2); Alkaline Phosphatase 74 U/L (46-116); Anion Gap 12 (7-16); Aspartate Amino Transferase 26 U/L (0-34); BUN/Creatinine Ratio 11 Ratio (12-20); Bilirubin,Total 0.6 mg/dL (0.3-1.2); Blood Urea Nitrogen 10 mg/dL (9-23); Calcium 9.3 mg/dL (8.3-10.6); Calcium (Corrected) 9.3 mg/dL (8.5-10.1); Chloride 100 mMol/L (98-107); Creatinine (Component) 0.9 mg/dL (0.6-1.3); Estimated Creatinine Clearance 179.1 mL/min (>60); Globulin 3.1 gm/dL (2.3-3.5); Glucose 188 mg/dL (74-106); Lipase 33 U/L (12-53); Osmolality,Calculated 279 (275-295); Potassium 3.9 mMol/L (3.4-5.1); Sodium 138 mMol/L (136-145); Total Protein 7.8 gm/dL (5.7-8.2); eGFR > 60 See Note
--- NOTE | 2025-03-19 09:21 | PC.NURSE ---
nuclear medicine called asking for report on pt
--- NOTE | 2025-03-19 10:21 | PC.NURSE ---
nuclear medicine called getting an update about pt. they stated that pt will be getting picked up in aorund 20 min for hida scan
[2025-03-19 10:22] VITALS: BP 156/101; PULSE 91; RESP 16; TEMP 36.3; O2SAT 96
--- NOTE | 2025-03-19 12:06 | PC.NURSE ---
PT WENT TO HIDA SCAN AT 1030. PT RETURNED AT 1206
[2025-03-19 12:08] VITALS: BP 151/96; PULSE 91; RESP 18; TEMP 36.6; O2SAT 95
--- NOTE | 2025-03-19 12:35 | PC.NURSE ---
MEDS WERE GIVEN DURING PROCEDURE, NOT IN ER
[2025-03-19 13:46] VITALS: BP 163/101; PULSE 96; RESP 15; TEMP 36.3
== END 2025-03-19 13:46 | disposition home or self-care (01) ==
PROVIDERS: Nurse Practitioner Family; Emergency Provider Emergency Medicine; PCP Nurse Practitioner Family
DX: R10.11 Right upper quadrant pain (principal); R19.7 Diarrhea, unspecified; R73.03 Prediabetes; K76.0 Fatty (change of) liver, not elsewhere classified
CPT/HCPCS: 36415; 76705; 78227; 80053; 80307; 81001; 83690; 85025; 99284; A9537; J2805

== ENCOUNTER 2025-06-09 20:58 | Emergency (ER) | payer MEDICARE, MEDICAID, SELFPAY ==
[2025-06-09 20:58] VITALS: BP 141/86; PULSE 115; RESP 18; TEMP 36.9; O2SAT 96
[2025-06-09 20:59] VITALS: BMI 48.7
--- NOTE | 2025-06-09 22:04 | PD.EDWOUND ---
ED Wound/Laceration-RME/HPI General Chief Complaint: Wound/Laceration Stated Complaint: LEFT INDEX FINGER LACERATION Time Seen by Provider: 06/09/25 21:32 Arrival date/time: 06/09/25 20:58 This is a 29-year-old male that comes in to the emergency room with complaints of laceration to his left index finger. Patient states he cut an avocado and accidentally cut his finger. No other injuries Related Data Home Medications ?Medication ?Instructions ?Recorded ?Confirmed lithium carbonate 450 mg 450 mg PO BID 12/14/22 12/14/22 tablet,extended release olanzapine 15 mg tablet 30 mg PO QPM 12/14/22 12/14/22 risperidone 4 mg tablet 8 mg PO QDAY 12/14/22 12/14/22 simvastatin 20 mg tablet 20 mg PO QDAY 12/14/22 12/14/22 Previous Rx's ?Medication ?Instructions ?Recorded ibuprofen 600 mg tablet 600 mg PO TID PRN pain #30 tabs 12/15/22 dicyclomine 20 mg tablet 20 mg PO TID PRN pain #30 tabs 12/20/22 ciprofloxacin HCl 500 mg tablet 500 mg PO BID #14 tabs 01/02/23 (Cipro) ibuprofen 800 mg tablet 800 mg PO TID PRN pain #30 tabs 01/13/23 naproxen 500 mg tablet 500 mg PO BID #30 tabs 02/11/23 ibuprofen 800 mg tablet 800 mg PO TID PRN pain #30 tabs 06/13/23 meloxicam 7.5 mg tablet 7.5 mg PO QDAY #10 tabs 06/28/23 dicyclomine 20 mg tablet 20 mg PO TID PRN pain #30 tabs 09/20/23 ibuprofen 600 mg tablet 600 mg PO TID PRN pain #30 tabs 10/25/23 metoclopramide HCl 10 mg tablet 10 mg PO Q6H PRN nausea and 02/28/24 (Reglan) vomiting #30 tabs amlodipine 5 mg tablet 5 mg PO QDAY #30 tabs 03/11/24 ibuprofen 800 mg tablet 800 mg PO Q6H PRN pain #10 tabs 06/09/25 Allergies Allergy/AdvReac Type Severity Reaction Status Date / Time No Known Allergies Allergy Verified 06/09/25 20:59 Review of Systems Review of Systems Systems Reviewed: All systems reviewed, normal except as documented Past Medical History Past Medical History CARDIAC: Positive Hypertension MUSCULOSKELETAL: Positive Musculoskeletal Disorders PSYCHO/SOCIAL: Positive Schizophrenia Social History SMOKING STATUS: Never smoker SECOND HAND EXPOSURE: No SUBSTANCE USE: opiates and methamphetamine OCCUPATION: Not working ED Exam Narrative Physical exam: VITAL SIGNS: Reviewed. GENERAL APPEARANCE: Alert and interactive, follows commands, no acute distress HEAD AND FACE: Non-traumatic. ENT: PERRL, conjuctiva pink and clear, eyelid no trauma, Mucous membrane moist. NECK: Supple, nontender, no nuchal rigidity. CHEST: No tenderness, no crepitus, no paradoxical movement, no retractions. LUNGS: breathing even and unlabored HEART: Regular rate, cap refill less than 2 seconds ABDOMEN: Soft, nondistended, no guarding, nontender, no rebound, no masses, NEUROLOGICAL: Gross motor function intact sensory function intact, Appropriate for age. MUSCULOSKELETAL: low back nontender, full range of motion. EXTREMITIES: No redness no swelling no skin breakdown on bilateral foot and leg. Distal neurovascular status intact bilateral foot SKIN: Color pink, dry, 4 mm approx laceration to left 2nd digit vila side Course Quality Measures none Orders Category Date Time Status Cleanse Wound NEEDED Care 06/09/25 22:03 Completed Splint / Immobilizer STAT Care 06/09/25 22:34 Completed Ibuprofen Tab [Motrin Tab] Med 06/09/25 22:33 Discontinued 800 mg PO X1 ONE Lidocaine 1% 20 ml [Xylocaine 1% 20 ML] Med 06/09/25 22:03 Discontinued 10 ml INFL X1 ONE TET,DIP/PERT AC (Adult)-Tdap [Boostrix Adult (Tdap) Med 06/09/25 22:33 Discontinued Vacc] 0.5 ml IMI .ONCE ONE Vital Signs Vital signs: Vital Signs Temperature 98.4 F 06/09/25 20:58 Pulse Rate 115 H 06/09/25 20:58 Respiratory Rate 18 06/09/25 20:58 Blood Pressure 141/86 H 06/09/25 20:58 Pulse Oximetry (%) 96 06/09/25 20:58 Oxygen Delivery Method Room Air 06/09/25 20:58 PROCEDURES: Laceration Laceration 1: Site: other (finger ) Side (If applicable): left Size (cm): 0.5 Description: irregular Depth: simple, single layer Local Anesthetic: lidocaine 1% Amount of anesthesia used (mL): 2 Pre-repair: wound explored and irrigated extensively Skin layer closed with: nylon Suture size (cm): 4-0 Number of sutures: 3 Technique: simple, interrupted Wound / Laceration MDM Narrative MDM Narrative:: The laceration occurred with a knife per patient Sensation is intact. There is full range of motion. There is no exposed tendons. No foreign bodies. Lidocaine 1% was used for anesthesia. The wound was irrigated extensively with normal saline. 3 Sutures were placed. A dressing was placed. There were no complications. Patient was educated to keep area clean and dry for 24 hours. Then clean daily with soap and water. Patient was educated to return for any signs of infection including swelling, pain, redness, pus, or fever and instructed to make an appointment with primary care provider in 48 hours. Patient was educated to follow-up with primary or return to the emergency room for suture removal in the next 7 to 10 days. Patient verbalized understanding. Patient data External records reviewed:: [facility] previous records Clinical information provided by:: patient Social determinants that could affect healthcare access:: none Patient has the following chronic illnesses:: none How is presenting disease/condition affected by chronic disease/condition?: no chronic disease Evaluation data The following diagnostics were reviewed and interpreted by me:: other (specify) (none) Lab and/or radiology exams considered but not ordered:: none Interpretation Summary: see note Medications / Prescriptions Medications or Prescriptions considered but not ordered:: none Medication administrations:: Medication Administration History Discontinued Medications Diphtheria/Tetanus/Acell Pertussis (Diphth,Pertuss(Acell),Tet Vac 0.5 Ml Syr- Adult) 0.5 ml IMi .ONCE ONE Stop: 06/09/25 22:34 Last Admin: 06/09/25 22:52 Dose: 0.5 ml Documented By: EF Ibuprofen (Ibuprofen Tab 400 Mg Tablet) 800 mg PO X1 ONE Stop: 06/09/25 22:34 Last Admin: 06/09/25 22:52 Dose: 800 mg Documented By: EF Lidocaine HCl (Lidocaine Hcl 1% 20 Ml Vial) 10 ml INFL X1 ONE Stop: 06/09/25 22:04 see [facility] Consultations Consultation(s) initiated? (list below): No Diagnosis Wound Differential Diagnosis: laceration, abscess, abrasion and avulsion of skin Most likely diagnosis given after review of the tests above:: laceration Admission Indicated Admission indicated?: not indicated Admission Request Was there a request for admission?: No Disposition Plan Disposition Plan: Discharge Discharge Attestation Discharge Attestation: The patient and all family members were given an opportunity to ask questions and understood the discharge instructions. Discharge instructions specifically effects, indications for sooner follow up or return to the emergency department, and the expected course of current diagnosis. Patient condition: Stable Discharge Plan Plan Patient Disposition: HOME (Self Care) Patient condition on transfer: Stable Prescriptions/Referrals Prescriptions/Med Rec: New ibuprofen 800 mg tablet 800 mg PO Q6H PRN (Reason: pain) Qty: 10 0RF No Action risperidone 4 mg Tablet 8 mg PO QDAY lithium carbonate 450 mg Tablet Extended Release 450 mg PO BID simvastatin 20 mg Tablet 20 mg PO QDAY olanzapine 15 mg Tablet 30 mg PO QPM ibuprofen 600 mg tablet 600 mg PO TID PRN (Reason: pain) Qty: 30 0RF dicyclomine 20 mg tablet 20 mg PO TID PRN (Reason: pain) Qty: 30 0RF meloxicam 7.5 mg tablet 7.5 mg PO QDAY Qty: 10 0RF ibuprofen 600 mg tablet 600 mg PO TID PRN (Reason: pain) Qty: 30 0RF metoclopramide HCl [Reglan] 10 mg tablet 10 mg PO Q6H PRN (Reason: nausea and vomiting) Qty: 30 0RF ciprofloxacin HCl [Cipro] 500 mg tablet 500 mg PO BID Qty: 14 0RF ibuprofen 800 mg tablet 800 mg PO TID PRN (Reason: pain) Qty: 30 0RF naproxen 500 mg tablet 500 mg PO BID Qty: 30 0RF ibuprofen 800 mg tablet 800 mg PO TID PRN (Reason: pain) Qty: 30 0RF dicyclomine 20 mg tablet 20 mg PO TID PRN (Reason: pain) Qty: 30 0RF amlodipine 5 mg tablet 5 mg PO QDAY Qty: 30 0RF Referrals: Zach Morales FNP [Primary Care Provider] - In 1 week Problem List Clinical Impression: Laceration Patient/Caregiver Discharge Instructions Discharge Activity: activity as tolerated Education Materials: ED Laceration: All Closures Additional Instructions: Sutures can be removed in 7 days. Follow up with primary provider in 1-2 days. Come back to ED if symptoms change or worsen Print Language: Peruvian Stand Alone Forms: Sonia Award Info., Patient Portal Info Letter PA/EMS INSTRUCTOR Supervising Physician PA/EMS INSTRUCTOR Supervising Physician: compa
[2025-06-09] MEDS: IBUPROFEN TAB 400 MG TABLET 800 MG PO (22:52)
[2025-06-09] MEDS: DIPHTH,PERTUSS(ACELL),TET VAC 0.5 ML SYR- ADULT IMi (22:52)
== END 2025-06-09 23:04 | disposition home or self-care (01) ==
PROVIDERS: Emergency Provider Emergency Medicine
DX: S61.211A Laceration without foreign body of left index finger without damage to nail, initial encounter (principal); W45.8XXA Other foreign body or object entering through skin, initial encounter; Z23 Encounter for immunization
CPT/HCPCS: 12002; 90471; 90715; 99283; A9270